=== PATIENT | male | born 1960 | race Caucasian/White ===

== ENCOUNTER → 2017-08-17 | Day surgery (SDC) | payer OTHER ==
[~2017-08-17] MED LIST: ADDERALL 15 MG15 MG PO; ADDERALL 30 MG30 MG PO; ATIVAN1 MG PO; DEPAKOTE500 MG PO; GLIMEPIRIDE4 MG PO; JANUVIA100 MG PO; LAMICTAL100 MG PO; LATUDA40 MG PO; LEXAPRO20 MG PO; LISINOPRIL10 MG PO; METFORMIN HCL500 MG PO; SIMVASTATIN40 MG PO; TEMAZEPAM30 MG PO; TRAZODONE HCL100 MG PO; VENTOLIN HFA 1818 GM INH
--- NOTE | 2017-09-05 13:15 | OP ---
[address] [address] OPERATIVE REPORT Name: ABDULLAHI BOWLING Room: [facility]#: [id number] Admission: 08/17/17 Attend Phys: Ethan Phan Discharge: Date of : 64 Report #: [id number] THIS REPORT FOR: //name// CC: Santy Shields DATE OF SERVICE: 08/17/2017 PREOPERATIVE DIAGNOSIS: Left shoulder full thickness rotator cuff tear. POSTOPERATIVE DIAGNOSES: 1. Left shoulder full thickness rotator cuff tear (anterior half supraspinatus tendon). 2. Impingement syndrome with subacromial spur. PROCEDURE: 1. Left shoulder arthroscopy. 2. Rotator cuff repair (anterior half supraspinatus single anchor, SpeedFix). 3. Subacromial decompression. SURGEON: Santy Hernandez DO. SUPERVISOR DENTURE DEPARTMENT: Sp Wong DO. ANESTHESIA: General. FLUIDS: Crystalloid. ESTIMATED BLOOD LOSS: Minimal. DRAINS: None. SPECIMENS: None. COMPLICATIONS: None. CONDITION: Stable. DISPOSITION: PACU to home. ANTIBIOTICS: 1 gram of vancomycin IV. INDICATIONS: The patient is a pleasant 57-year-old male who is a diabetic and smokes. He has been a patient of Dr. Galloway. He asked me to help him out with this procedure due to scheduling conflicts as an emergent case arose prior to the patient's scheduled procedure a few days ago. He has been [place] [address] [address] OPERATIVE REPORT Name: ABDULLAHI BOWLING Room: [facility].#: [id number] Admission: 08/17/17 Attend Phys: Ethan Phan Discharge: Date of : 64 Report #: [id number] off work and I was able to accommodate him sooner than Dr. Ashton could reschedule. I have reviewed his case in detail including the chart and images. I have discussed the plan with him in detail. I reviewed the risks, benefits, alternatives and expected outcomes of the procedure. He has verbalized understanding and wished to proceed. FINDINGS: We evaluated the shoulder intraoperatively. His subscapularis was intact as verified with a posterior lever push. There was minimal inflammation in the rotator interval. His biceps tendon looks normal. There is no SLAP tear. There is minimal arthrosis throughout the glenohumeral joint. The labrum looks to be normal without any discrete tearing. No loose bodies are seen. Assessing the cuff, he does look to have a small full thickness tear in the anterior border of the supraspinatus. This was marked with a needle. We then transitioned to the subacromial space where he did have dense subacromial bursitis. We performed a complete bursectomy with mechanical shaver and a radiofrequency ablator. He did have a fairly large subacromial spur which was removed with a bur with a shaver on high speed. We then evaluated his cuff. He did have a full thickness tear of the anterior half of the supraspinatus tendon, which we repaired with a SpeedFix construct utilizing an Arthrex FiberTape and SwiveLock. DESCRIPTION OF PROCEDURE: The patient was brought to the operative suite, placed in supine position on the OR table, given the benefit of general anesthetic. He was then positioned into a lateral decubitus position and secured with a beanbag. All bony prominences were well padded, an axillary roll was placed. His left upper extremity secured with 10 pounds of balanced suspension and a standard arthroscopic arm culp. The shoulder and arm were prepped and draped in usual sterile fashion with a chlorhexidine scrub, alcohol rinse, ChloraPrep paint. A time-out was utilized to ensure proper operative patient, procedure and extremity. Once antibiotic administration were verified, we began by making a standard posterior portal incision. The arthroscope was introduced to the shoulder. The above findings were noted. We established an anterior portal with needle localization and placed a shaver into the glenohumeral joint. We gently debrided some labrum, mostly probed the SLAP portion of the labrum. It was very secure. The biceps was stable. His subscapularis likewise was without distinct pathology. The rotator cuff was probed from its undersurface. It did appear to have a tear in its anterior border. We subsequently placed a needle to ralph the tear from an anterolateral location. We then transitioned to the subacromial space. We created a standard lateral working portal. We utilized an arthroscopic shaver and radiofrequency ablator to perform a subacromial bursectomy as well as an acromioplasty to remove a moderate to large size spur along the anterior half of the acromion. We created an accessory lateral portal more off the anterolateral border of the acromion as this was a better trajectory to repair this cuff and he is a large, approximately 300-pound man. We utilized a shaver to debride the footprint of the greater tuberosity to a nice bleeding bed of bone. We then utilized a [address] [address] OPERATIVE REPORT Name: ABDULLAHI BOWLING Room: [facility]#: [id number] Admission: 08/17/17 Attend Phys: Ethan Phan Discharge: Date of : 64 Report #: [id number] Arthrex cannula through this portal and placed Arthrex FiberTape through the rotator cuff passed with a [employer] suture passer. We then brought both limbs of the suture through another accessory portal created just off the lateral margin of the acromion, which gave us better angle to implant an anchor into the proximal humerus. A punch was utilized to the appropriate depth and then followed by implantation of a 4.75 mm Arthrex Bio[employer]posite SwiveLock which secured our repair nicely. This was excellent bite and was very stable. We at this point were satisfied with the repair. There was nothing more that we felt needed to be done. We subsequently drained excess fluid from the shoulder. We closed the portal incisions with 3-0 nylon in simple interrupted fashion. A sterile dressing was applied. The patient was transferred to PACU in stable condition. <ELECTRONICALLY SIGNED> By: Santy Hernandez DO 09/05/17 1315 [id number] Hernandez DO /dario
== END | disposition home or self-care (01) ==
LOC: M.SUR 11:36
DX: M75.102 Unspecified rotator cuff tear or rupture of left shoulder, not specified as traumatic (principal); M75.42 Impingement syndrome of left shoulder; Z88.0 Allergy status to penicillin; Z88.8 Allergy status to other drugs, medicaments and biological substances; Z79.899 Other long term (current) drug therapy

== ENCOUNTER → 2017-10-12 | Outpatient (CLI) | payer OTHER | LOC: M.CT 10:15 | DX: R06.02 Shortness of breath (principal); R79.89 Other specified abnormal findings of blood chemistry; R79.1 Abnormal coagulation profile ==

== ENCOUNTER → 2017-10-17 | Outpatient (CLI) | payer OTHER | LOC: M.ULTRA 07:50 | DX: N13.30 Unspecified hydronephrosis (principal) ==

== ENCOUNTER → 2017-11-05 | Outpatient (CLI) | payer OTHER ==
[2017-11-05 08:50] LABS: CREATININE 1.4 mg/dL (0.6-1.3)
== END ==
LOC: M.CT 08:00
DX: N13.2 Hydronephrosis with renal and ureteral calculous obstruction (principal); N28.1 Cyst of kidney, acquired; N04.9 Nephrotic syndrome with unspecified morphologic changes; K76.0 Fatty (change of) liver, not elsewhere classified; E11.9 Type 2 diabetes mellitus without complications

== ENCOUNTER → 2017-11-23 | Outpatient (CLI) | payer OTHER | LOC: M.CT 11-20 11:00 → M.ULTRA 07:22 | DX: I65.23 Occlusion and stenosis of bilateral carotid arteries (principal); E11.9 Type 2 diabetes mellitus without complications ==

== ENCOUNTER → 2017-12-05 | Outpatient (CLI) | payer OTHER | LOC: M.CT 07:18 | DX: R42 Dizziness and giddiness (principal); E11.9 Type 2 diabetes mellitus without complications ==